=== PATIENT | male | born 1985 | race Caucasian/White ===

== ENCOUNTER 2017-03-26 00:39 | Inpatient (IN) ==
[2017-03-26] MEDS ORDERED: Piperacillin/Tazobactam 4.5 GM in D5% in Water (Mini-Bag+) 100 ML IVPB ONE (01:41)
--- NOTE | 2017-03-26 01:48 | Emergency Department Note ---
Disposition Clinical Impression: Right arm cellulitis, Abscess of right hand Disposition: Admitted As Inpatient Condition: Good Referrals: NONE,PCP [Primary Care Provider] - Forms: ED Satisfaction Letter Time of Disposition: 01:46 Extremity Problem HPI - General Chief complaint: ED Extremity Problem,Nontraumatic Stated complaint: R Hand Swelling Time Seen by Provider: 03/26/17 01:39 Source: patient Limitations: no limitations Nursing Notes Reviewed: Yes Vital Signs Reviewed: Yes - History of Present Illness Pt Subjective Complaint: extremity pain Onset (ago): day(s) Consistency: Worsening Injury Location: upper extremity Pain Scale: 10 Improves with: nothing Worsens with: range of motion, palpation Associated symptoms: Reports: swelling 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, 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, 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 but 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) - Related Data Home Medications Medication Instructions Recorded Confirmed Hydrocodone/Acetaminophen [[place] 1 tab PO Q4H PRN 01/08/15 01/08/15 10-325 Tablet] Ondansetron ODT [Zofran ODT] 4 mg SL Q6HR 01/08/15 01/08/15 Tamsulosin [Flomax] 0.4 mg PO DAILY 01/08/15 01/08/15 Previous Rx's Medication Instructions Recorded Naproxen [Naprosyn] 500 mg PO BID PRN #10 tablet 01/09/15 Clindamycin [Cleocin] 450 mg PO Q6HR 10 Days capsule 03/26/17 Allergies Allergy/AdvReac Type Severity Reaction Status Date / Time NSAIDS (Non-Steroidal Allergy can't take Verified 03/26/17 00:55 Anti-Inflamma due to ulcers All systems ED: reviewed and negative except as stated. Constitutional: Denies: fever, chills Eyes: Denies: vision change ENT ED: Denies: throat pain Cardiovascular: Denies: palpitations Respiratory: Denies: other Gastrointestinal: Denies: abdominal pain, nausea, vomiting Genitourinary: Denies: dysuria Musculoskeletal: Reports: as per HPI. Denies: back pain Integumentary: Denies: rash Neurological: Denies: headache Psychiatric: Denies: anxiety Endocrine: Denies: fatigue Hematological/Lymphatic: Denies: easy bleeding Allergic/Immunologic: Denies: facial swelling Past Medical History - Past Medical History Medical history: Reports: kidney stones Surgical history: Reports: non-contributory Psychiatric history: Reports: no psych history - Social History Smoking Status: Current every day smoker Alcohol use: Reports: none Drug use: Reports: none Physical Exam - General Limitations: no limitations General appearance: alert - Head Head exam: normocephalic - Eye Eye exam: Present: EOMI - ENT ENT exam: mucous membranes moist - Neck Neck exam: Present: full ROM - Chest Chest inspection: Present: symmetric chest wall rise - Respiratory Respiratory exam: Present: normal lung sounds bilaterally. Absent: respiratory distress - Cardiovascular Cardiovascular exam: Present: regular rate, normal rhythm, normal heart sounds - Abdominal Exam Abdominal exam: Present: soft, Non-Tender - Expanded Upper Extremity Exam Elbow exam: Present: normal inspection, full ROM Forearm/Wrist exam: Present: tenderness (right), swelling (right). Absent: full ROM Hand exam: Present: tenderness (right), swelling (right). Absent: full ROM Neurosensory exam: Normal: 2-point discrimination Vascular exam: Normal: capillary refill, radial pulse - Back Exam Back exam: Present: full ROM - Neurological Exam Neurological exam: Present: alert - Psychiatric Psychiatric exam: Present: normal affect, normal mood - Skin Skin exam: Present: warm, dry, intact, normal color. Absent: rash, cyanosis, diaphoresis Course Course Narrative: Patient is a right-hand dominant 31-year-old male that presents with swelling and pain in his right upper extremity. Just prior to his arrival, patient had signed out AGAINST MEDICAL ADVICE, but had been seen and evaluated and accepted for admission despite his arrival. He returns with request to continue his treatment. He denies any changes in his medical condition. Please see earlier documentation from previous visit for details. Patient had received vancomycin earlier. Zosyn was ordered. 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 We will continue fluids, start Zosyn patient is also due for a lactic acid. I had spoken to the hospitalist Dr. Ordonez earlier who had accepted the patient. We will plan for admission. - Reevaluation(s) Reevaluation #1: Pt's lactic acid improving, vitals stable. Pt stable for transfer to inpatient care. Time: 02:17 Vital Signs Temperature 97.4 F L 03/26/17 00:51 Pulse Rate 86 03/26/17 00:51 Respiratory Rate 16 03/26/17 00:51 Blood Pressure 102/61 03/26/17 00:51 O2 Sat by Pulse Oximetry 97 03/26/17 00:51 Temperature 97.4 F L 03/26/17 00:51 Pulse Rate 86 03/26/17 00:51 Respiratory Rate 16 03/26/17 00:51 Blood Pressure 102/61 03/26/17 00:51 O2 Sat by Pulse Oximetry 97 03/26/17 00:51 Oxygen Delivery Oxygen Delivery Room Air Extremity Problem, Nontraumati - Lab Data Lab Results 03/26/17 Range/Units 01:50 Lactic Acid 1.9 (0.5-2.2) mmol/L
[2017-03-26] MEDS: 0.9 % Sodium Chloride 1,000 ML IVC SCH ×6 (01:55→20:15)
[2017-03-26] MEDS ORDERED: Acetaminophen 325 MG TABLET PO ONE (02:18)
[2017-03-26] MEDS: *HR* Morphine 2 MG/ML SYRINGE IVP PRN ×2 (04:11→06:42)
[2017-03-26] MEDS: Nicotine 21 MG PATCH.TD24 TD SCH ×2 (05:50→22:11)
[2017-03-26] MEDS ORDERED: Naloxone 0.4 MG/ML INJ IVP PRN (08:17)
[2017-03-26] MEDS ORDERED: Acetaminophen 325 MG TABLET PO PRN (08:17)
--- NOTE | 2017-03-26 08:44 | Orthopedic Consult Note ---
Date of Encounter: 03/26/17 Time of Encounter: 08:42 Assessment and Plan (1) Abscess of right hand Current Visit: Yes Status: Acute Right dorsal hand/wrist abscess. I did discuss the diagnosis in detail the patient. Treatment options were discussed and my recommendation was for incision, drainage, irrigation, and debridement in order to assist in infection clearance coupled with IV antibiotics. Given the large nature of the abscesses and multiple loculations, my recommendation was to proceed to the operating room for this procedure. The risks discussed included but were not limited to stiffness, bleeding, infection, blood clots, damage to neurovascular structures , tendons, ligaments, and bone. Also discussed was the risk of continued symptoms and possible need for further procedures. I did discuss the anesthesia risks including stroke, heart attack, and . I did discuss the reasonable, foreseeable postoperative course with the patient. I discussed this in simple terms with the patient and he wished to proceed and consent was obtained. History of Present Illness HPI: Mr. Vallejo is a 31 year old male who is admitted to the hospitalist yesterday due to a right dorsal hand and wrist infection with underlying abscess. I was consulted to assist in the evaluation and management of this patient. On my evaluation the patient says that about 3 days ago he simply woke up with pain and swelling on the back of his hand and wrist. He tried to drain it himself with a sewing needle. He was unsuccessful. Due to persistent pain and swelling he presented to the emergency department where he had apparently attempted signing out AMA once but then eventually agreed to admission. Pain is isolated to the right dorsal hand and wrist and radiates proximally and is quite significant. Numbness and tingling to the distal hand and fingers. Pain is worse with movement and without any relieving factors. No other associated signs or symptoms or modifying factors. When asked about IV drug use he adamantly denies this and says that he did not inject anything into the right dorsal wrist or hand area. Past Med Surg Social Fam HX - Past Medical History Medical history: DVT, kidney stones Psychiatric history: no psych history - Past Surgical History Surgical History: non-contributory - Social History Smoking Status: Current every day smoker Packs per day: 1 Smokeless Tobacco Status: No Alcohol use: none Drug use: none Medications and Allergies No Known Home Drugs 03/26/17 [History] 3 Allergy/AdvReac Type Severity Reaction Status Date / Time NSAIDS (Non-Steroidal Allergy can't take Verified 03/26/17 00:55 Anti-Inflamma due to ulcers All Systems Reviewed: Constitutional and musculoskeletal systems were reviewed and are negative unless otherwise stated in history of present illness. Physical Exam - Constitutional Vitals: Temp Pulse Resp BP Pulse Ox 97.8 F 81 16 98/51 96 03/26/17 07:03 03/26/17 07:03 03/26/17 07:03 03/26/17 07:03 03/26/17 07:03 CONSTITUTIONAL -Vitals reviewed -The patient is well developed, well nourished, well groomed PSYCHIATRIC -Fully alert and oriented -Pleasant mood RIGHT UPPER EXTREMITY Inspection shows that the skin and the soft tissue envelope are intact. Significant swelling to the dorsal hand and wrist area with overlying cellulitis. The cellulitis remains localized. There is dorsal distal forearm swelling without erythema. No induration. No significant fluctuance. Significant tenderness to palpation dorsally. The fingers are puffy. Full motion of the shoulder and elbow without difficulty. Wrist and digital motion is limited due to the pain. Grossly flex and extend the digits. The fingertips are all grossly sensate and well-perfused. Diagnostic Imaging: I did personally review and interpret the CT scan of the right hand and wrist which show multiple large dorsal subcutaneous and deep abscesses going down to the extensor tendons. Results - Labs Labs: All other labs normal. Consult Discharge Plan - Plan Referrals: NONE,PCP [Primary Care Provider] -
--- NOTE | 2017-03-26 09:02 | Internal Med History&Physical ---
Date of Encounter: 03/26/17 Time of Encounter: 09:02 Assessment and Plan (1) Right arm cellulitis Current visit: Yes Status: Acute Treat with IV antibiotics. Pain control with intravenous narcotic medications. High risk for complications. (2) Abscess of right hand Current visit: Yes Status: Acute Orthopedics has been consulted for evaluation. Possible incision and drainage later today. Keep nothing by mouth for now. Internal Medicine - H&P: HPI Chief complaint: Pain with swelling and redness over the right hand Admitted From: Emergency Dept Plans for Post Hospital Care: Home History of present illness: Mr. Vallejo is a 31 year old male patient who presented to the ER with complaints of swelling and redness involving the right hand along with severe pain. He says the symptoms started Wednesday morning when he woke up in the morning with pain and swelling involving this hand. He denies any traumatic injury or insect bite that he was aware of. He tried applying ice packs and then the swelling did not go down he tried to open it up with a sewing needle. However the symptoms continued to quit or sensory came to the ER yesterday. He was evaluated and recommended hospitalization for intravenous antibiotics and drainage but he decided to go home AGAINST MEDICAL ADVICE. He was sent home on oral antibiotics. Return to the ER as his pain continued to get worse. He then agreed to be hospitalized. He denies any fever at this time. Pain is 10 out of 10 in severity in the right hand and extending up to the forearm. Past Med Surg Social Fam HX - Past Medical History Attestation: Yes The following information was validated with the patient. Source: patient Medical history: DVT, GI bleed, kidney stones Psychiatric history: no psych history - Past Surgical History Surgical History: non-contributory - Social History Smoking Status: Current every day smoker Packs per day: 1 Smokeless Tobacco Status: No Alcohol use: none Drug use: none - Additional Family History Additional family history: Reviewed and found to be noncontributory at this time Internal Medicine - H&P: Meds No Known Home Drugs 03/26/17 [History] 3 Allergy/AdvReac Type Severity Reaction Status Date / Time NSAIDS (Non-Steroidal Allergy can't take Verified 03/26/17 00:55 Anti-Inflamma due to ulcers All Systems PM: A 10-system review of systems was performed and is negative for pertinent findings except as documented above in the HPI. - Constitutional Constitutional: malaise, no chills, no fever(s), no night sweats - EENT Eyes: no change in vision, no discharge, no pain, no photophobia Ears: no ear discharge, no ear pain, no tinnitus Nose, mouth and throat: no dysphagia, no nasal discharge, no neck pain, no sore throat - Cardiovascular Cardiovascular ROS IM: no chest pain, no diaphoresis, no dyspnea, no lightheadedness, no palpitations, no syncope - Musculoskeletal Musculoskeletal ROS IM: no numbness, no tingling - Integumentary Integumentary IM: erythema, rash - Neurological Neurological ROS: no confusion, no convulsions, no focal weakness, no numbness, no tingling, no tremor(s) - Hematologic/Lymphatic Hematologic/Lymphatic: no easy bruising - Constitutional Vitals: Temp Pulse Resp BP Pulse Ox 97.8 F 81 16 98/51 96 03/26/17 07:03 03/26/17 07:03 03/26/17 07:03 03/26/17 07:03 03/26/17 07:03 General appearance: Present: cooperative, A&O X 3, answers questions appropriately Exam: Moderate distress - Neck Neck exam general surgery: Present: supple, trachea midline. Absent: lymphadenopathy - Respiratory Respiratory exam: Present: CTAB. Absent: accessory muscle use, rales, rhonchi, wheezes - Cardiovascular Cardiovascular exam: Present: RRR, +S1, +S2. Absent: diastolic murmur, gallop, rubs, systolic murmur - GI/Abdominal GI/Abdominal exam: Present: normal bowel sounds, soft, no peritoneal signs. Absent: distended, tenderness - Extremities Exam Extremities exam: Present: tenderness, warm, radial pulses palpable and symmetrical. Absent: calf tenderness, cyanotic, pedal edema Additional comments: Erythema and swelling involving the entire dorsal surface of the right hand with extension up to the forearm. Pain with both active and passive motion around the wrist and finger joints - Neurological Exam Neurological exam: Present: CN II-XII intact, oriented X3, no focal deficits. Absent: facial droop, speech deficit - Skin Skin exam: Present: dry, erythema, intact Internal Med - H&P Results - Labs Labs: WBC 19.2 - Impressions CT of the right forearm and hand done yesterday show large abscesses on the dorsal surface of the hand measuring 3.3 x 2 x 4.4 cm with associated tenosynovitis of the third and fourth extensor digitorum tendon and small linear abscess measuring 13 x 5 x 23 mm along the dorsal aspect of the wrist near extensor digitorum tendons and musculature
[2017-03-26] MEDS: *HR* HYDROmorphone 2 MG/ML SYRINGE IVP PRN ×6 (09:09→23:19)
[2017-03-26] MEDS: Vancomycin 1,000 MG in D5% in Water 250 ML IVPB SCH ×2 (09:49→20:08)
[2017-03-26] MEDS: *HR* OxyCODONE Immed Rel 5 MG TABLET PO PRN ×2 (10:40→22:11)
[2017-03-26] MEDS: Piperacillin/Tazobactam 3.375 GM in D5% in Water 50 ML IVPB SCH ×2 (13:13→23:18)
[2017-03-26] MEDS ORDERED: *HR* HYDROmorphone 2 MG/ML SYRINGE IVP ONE (13:44)
--- NOTE | 2017-03-26 16:22 | Anesthesia Evaluation PreOp ---
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 Significant HX Other Medical History: Renal (Hx of kidney stones), Bleeding (Hx of DVT), GERD ( Hx GIB/ulcers) Anesthesia History: No Prior Anesthetic Complications, Past Anesthesia Alcohol Use: none Drug use: none Medications and Allergies No Known Home Drugs 03/26/17 [History] 3 Allergy/AdvReac Type Severity Reaction Status Date / Time NSAIDS (Non-Steroidal Allergy can't take Verified 03/26/17 00:55 Anti-Inflamma due to ulcers - Meds/Allergy Pre-op Review Medications Reviewed: Yes Allergies Reviewed: Yes Beta Blockers on Current Med List: No Anesthesia Results - Labs Laboratory Results Lactic Acid 1.9 mmol/L (0.5-2.2) 03/26/17 01:50 Anesthesia Exam Vital Signs Temp Pulse Resp BP Pulse Ox 03/26/17 11:53 98.2 F 74 16 97/53 99 03/26/17 10:02 96 03/26/17 07:03 97.8 F 81 16 98/51 96 03/26/17 03:02 97.8 F 69 18 101/69 100 03/26/17 02:51 18 135/72 03/26/17 00:51 97.4 F L 86 16 102/61 97 Intake and Output 03/26/17 03/26/17 03/26/17 07:59 15:59 23:59 Intake Total 1999 100 / 100 Output Total 0 / 0 Balance 1999 100 / 100 Intake: IV Fluids 1999 100 / 100 0.9 % Sodium Chloride 1,000 ML 1999 @ 3750 mls/hr IVC .Q16M [facility] Rx# :[id number] Zosyn 4.5 GM In Dextrose 5% ( 100 / 100 Minibag+) 100 ML 100 ML @ 100 mls/hr IVPB ONCE ONE Rx#: [id number] Output: Urine 0 / 0 Other: # Voids 1 Weight 61.235 kg Patient Weight 03/26/17 23:59 Weight 61.235 kg Height: 5'9" Weight: 135# BMI = 20 NPO (# of Hours): MNoc - HEENT Pupil (Motor): Pupils equal, EOMI Mallampati: II Teeth: Normal Oral Opening: Greater than 3 - COMMODITIES TRADER LOC: Oriented COMMODITIES TRADER Motor: Normal RUE, Normal LUE, Normal RLE, Normal LLE, Normal Face COMMODITIES TRADER Sensory: Normal: RUE, LUE, RLE, LLE, Face - Cardiac Rhythm: Regular Murmur: None - Pulmonary Breath Sounds: bilateral Clear Respiratory Effort: Symmetrical Anesthesia Assess/Plan ASA Score: 2 (Smoker, suspected IVDA) Modified Scotty Scale for Level of Consciousness: Cooperative, oriented, and tranquil Anesthetic Plan: General Monitoring Plan: Standard Monitors Recovery Plan: PACU Anes Supervising Prov Stmt: Pt seen/evaluated, R&B Discussed, questions answered and consent obtained. Adarsh Kinney MD
[2017-03-26] MEDS ORDERED: Gabapentin 300 MG CAPSULE ONE (16:49)
[2017-03-26] MEDS ORDERED: Ondansetron 4 MG/2 ML VIAL ONE (16:56)
[2017-03-26] MEDS ORDERED: Lidocaine -MPF 2% 2 ML VIAL ONE (16:56)
[2017-03-26] MEDS ORDERED: Dexamethasone 4 MG/ML VIAL ONE (16:56)
[2017-03-26] MEDS ORDERED: *HR* Midazolam HCl 2 MG/2 ML VIAL ONE (16:56)
[2017-03-26] MEDS ORDERED: *HR* Propofol 200 MG/20 ML VIAL IVP ONE (16:56)
[2017-03-26] MEDS ORDERED: *HR* FentaNYL (PF) 100 MCG/2 ML VIAL ONE (16:56)
[2017-03-26] MEDS ORDERED: Ondansetron 4 MG/2 ML VIAL IVP ONE (17:37)
[2017-03-26] MEDS ORDERED: *HR* Promethazine 25 MG/ML VIAL IVP PRN (17:37)
[2017-03-26] MEDS ORDERED: Ringers Solution, Lactated 1,000 ML IVC SCH (17:45)
[2017-03-26] MEDS: *HR* HYDROmorphone (PF) 1 MG/ML SYRINGE IVP PRN ×2 (17:55→18:05)
--- NOTE | 2017-03-26 18:47 | Anesthesia Evaluation Post Op ---
Date of Encounter: 03/26/17 Time of Encounter: 18:46 - Vital Signs Vital Signs: Vital Signs/O2 Sat/Glucose, Most Current Temp Pulse Resp BP Pulse Ox 03/26/17 18:30 76 16 113/80 98 03/26/17 18:20 97.7 F 81 16 118/77 95 03/26/17 18:10 82 18 123/87 95 03/26/17 18:00 86 18 134/88 97 03/26/17 17:50 98.0 F 77 18 133/97 99 - Lungs Lungs: Clear Ascult./Percussion - Airway Airway: Non-obstructed - Cardiovascular Regular Rate - Mental Status Mental Status: Alert & Oriented, Answers Appropriately - Pain Pain Scale: 0 Pain Scale used: Numeric (1 - 10) - Nausea Vomiting Nausea Vomiting: Not Present - Hydration Hydration: Ice chips - Discharge PostOp Status: Transfer Patient to floor Anes Supervising Prov Stmt: Pt seen/evaluated, VSS and pt has met criteria for discharge to floor. - MD Nirmal
--- NOTE | 2017-03-26 19:39 | Orthopedic Operative Note ---
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 Also swabs were taken for culture. IMPLANTS: None LOCAL INJECTION: None PREOPERATIVE NOTE AND INDICATIONS: Syd is a 31-year-old male who has a right dorsal hand and wrist abscess. Recommendation was for incision, drainage, irrigation, and debridement in order to assist in clearing the infection. The surgical plan was discussed with the patient. The risks, benefits, alternatives, and potential complications of this procedure were discussed with the patient including injury to veins, arteries, nerves, tendons, ligaments, and bone. Also discussed were the risks of infection, bleeding, pain, blood clots, the possible need for a blood transfusion, the possible need for further procedures, heart attack, stroke, and . Additional risks include the need for further debridements. All of this was explained in simple terms, and the patient verbalized understanding and wished to proceed. Consent was given to proceed with surgery. PROCEDURE: The patient was seen in the preoperative holding area where the identify and the consent were confirmed. The right wrist was marked. Final questions were answered. The patient was brought back to the operating room and placed supine on the operating room table. A huddle was performed with the patient and all vital surgical team members confirming patient identity, the correct procedure, and the correct operative site. General anesthesia was administered. The right upper extremity was prepped and draped in the usual sterile fashion. A surgical time out was performed immediately preceding the incision with all personnel in the operating room to confirm patient identity, the correct operative site and extremity, correct radiographic studies, availability of appropriate surgical equipment, and agreement on the planned procedure. The limb was elevated and the tourniquet was inflated. A dorsal longitudinal incision was made at the base of the hand and extended into the distal dorsal wrist area. Dissection proceeded through the subcutaneous tissue and immediately encountered were copious amounts of grossly purulent material. There is no foul smell. This was swabbed for culture. There is a significant amount of necrotic fat in the subcutaneous space which was sharply debrided. Dissection proceeded down to the dorsal retinaculum and there is noted to be grossly purulent material which could be expressed from the forearm. Therefore dissection proceeded proximally along the distal forearm region, dissecting through the subcutaneous tissue which was significantly edematous. The dorsal fascia was opened and purulence was drained and the wound was copiously irrigated with 3 L of saline. The extensor tendons of the third and fourth dorsal compartments were intact. The EPL muscle belly and extensor digitorum communis muscle bellies were intact and in good repair. After copiously irrigating and debriding the wound the remaining tissue was healthy. In total the length of the debridements spanned 16 cm. The tourniquet was deflated and discrete bleeders were electrocauterized. A final irrigation ensued. The central 5 cm was loosely closed with interrupted nylon stitches. The proximal distal portion was packed open with quarter-inch out a form gauze packing and a sterile dressing was applied. A volar short arm splint was applied. The instrument, sponge, and needle counts were correct after wound closure. POST OPERATIVE PLAN: Weight Bearing: Nonweightbearing to the right upper extremity. DVT Prophylaxis: Ambulation Activity: Avoid aggressive activities with the right upper extremity. Wound Care: Daily dressing and packing changes
[2017-03-26 20:23] LABS: Basophils # 0.1 K/mcL (0.0-0.2); Basophils % 0.5 %; Eosinophils # 0.1 K/mcL (0.0-0.6); Eosinophils % 0.7 %; Immature Granulocytes % 0.5 % (0-4); Lymphocytes # 1.6 K/mcL (0.6-4.6); Lymphocytes % 10.7 %; Mean Corpuscular HGB Conc 32.3 g/dL (31.6-35.5); Mean Corpuscular Hemoglobin 28.4 pg (28.0-33.3); Mean Corpuscular Volume 88.1 fL (83.0-100.0); Monocytes # 0.3 K/mcL (0.0-1.3); Monocytes % 2.1 %; Neutrophils # 13.1 K/mcL (1.6-8.9); Platelet Count 299 K/mcL (140-400); Red Blood Count 4.54 M/mcL (4.19-5.50); Red Cell Distribution Width 15.6 % (11.5-14.5); Segmented Neutrophils % 85.5 %
[2017-03-26 20:24] LABS: Hemoglobin 12.9 g/dL (12.9-16.9)
[2017-03-26 20:35] LABS: BUN/Creatinine Ratio 10 (6-26); Blood Urea Nitrogen 8 mg/dL (8-26); C-Reactive Protein 44 mg/L (Less than 5); Calcium 9.2 mg/dL (8.6-10.8); Carbon Dioxide 21 mEq/L (19-29); Chloride 103 mEq/L (98-109); Glucose 144 mg/dL (70-99); Osmolality,Calculated 279 (280-300); Potassium 4.2 mEq/L (3.5-4.5); Sodium 134 mEq/L (136-145); eGFR For African Americans > 60 (> 60); eGFR For Non-African Americans > 60 (> 60)
[2017-03-27] MEDS: *HR* HYDROmorphone 2 MG/ML SYRINGE IVP PRN ×10 (01:22→23:56)
[2017-03-27 03:58] LABS: Basophils % 0.2 %; Eosinophils % 0.1 %; Hemoglobin 11.7 g/dL (12.9-16.9); Immature Granulocytes % 0.3 % (0-4); Lymphocytes # 1.6 K/mcL (0.6-4.6); Lymphocytes % 13.5 %; Mean Corpuscular HGB Conc 32.5 g/dL (31.6-35.5); Mean Corpuscular Hemoglobin 28.6 pg (28.0-33.3); Mean Platelet Volume 9.8 fL (9.4-12.4); Monocytes # 0.7 K/mcL (0.0-1.3); Monocytes % 5.6 %; Neutrophils # 9.2 K/mcL (1.6-8.9); Platelet Count 270 K/mcL (140-400); Red Blood Count 4.09 M/mcL (4.19-5.50); Red Cell Distribution Width 15.4 % (11.5-14.5); Segmented Neutrophils % 80.3 %
[2017-03-27 04:12] LABS: BUN/Creatinine Ratio 11 (6-26); Blood Urea Nitrogen 10 mg/dL (8-26); Calcium 8.5 mg/dL (8.6-10.8); Carbon Dioxide 26 mEq/L (19-29); Chloride 103 mEq/L (98-109); Glucose 171 mg/dL (70-99); Osmolality,Calculated 285 (280-300); Sodium 136 mEq/L (136-145); eGFR For African Americans > 60 (> 60); eGFR For Non-African Americans > 60 (> 60)
[2017-03-27] MEDS ORDERED: Piperacillin/Tazobactam 3.375 GM in D5% in Water 50 ML IVPB SCH (08:00)
--- NOTE | 2017-03-27 08:40 | Orthopedics Progress Note ---
Date of Encounter: 03/27/17 Time of Encounter: 08:37 - Assessment and Plan (1) Abscess of right hand Current Visit: Yes Status: Acute Right dorsal hand/wrist abscess. I did discuss the diagnosis in detail the patient. Treatment options were discussed and my recommendation was for incision, drainage, irrigation, and debridement in order to assist in infection clearance coupled with IV antibiotics. Given the large nature of the abscesses and multiple loculations, my recommendation was to proceed to the operating room for this procedure. The risks discussed included but were not limited to stiffness, bleeding, infection, blood clots, damage to neurovascular structures , tendons, ligaments, and bone. Also discussed was the risk of continued symptoms and possible need for further procedures. I did discuss the anesthesia risks including stroke, heart attack, and . I did discuss the reasonable, foreseeable postoperative course with the patient. I discussed this in simple terms with the patient and he wished to proceed and consent was obtained. Subjective Interval history: S: Improved pain to the right dorsal wrist after surgery though he still complains of pain. O: Afebrile and his vital signs are stable The dressing is changed and the packing removed. No purulence. No significant erythema. Persistent swelling to the dorsum of the hand No significant induration proximal to the I&D site or on the volar aspect. He grossly flexes and extends the digits. The fingertips are all grossly sensate and well-perfused, and the radial artery pulse is 2+. Cultures are pending A: Post I&D of the right dorsal wrist and hand area P: Continue IV antibiotics at least for another 24 hours Aggressive elevation Motion exercises to reduce the risk of stiffness I will consult occupational therapy to assist in this Daily dressing changes Objective Vital signs: Vital Signs Temp Pulse Resp BP Pulse Ox 03/27/17 07:51 98.0 F 76 12 111/68 99 03/26/17 23:24 99.3 F 85 17 133/62 95 03/26/17 22:15 98.4 F 83 16 98/58 93 03/26/17 21:15 97.6 F 86 14 101/68 94 03/26/17 20:15 97.9 F 83 16 98/62 94 03/26/17 19:45 98.6 F 83 14 96/56 96 03/26/17 19:10 98.1 F 81 14 109/67 97 03/26/17 18:45 97.8 F 79 14 106/69 97 03/26/17 18:30 76 16 113/80 98 03/26/17 18:20 97.7 F 81 16 118/77 95 03/26/17 18:10 82 18 123/87 95 03/26/17 18:00 86 18 134/88 97 03/26/17 17:50 98.0 F 77 18 133/97 99 03/26/17 11:53 98.2 F 74 16 97/53 99 Intake and Output 03/26/17 03/27/17 03/27/17 23:59 07:59 15:59 Intake Total 1050 / 1050 Output Total 5 / 5 Balance 1045 / 1045 Intake: IV Fluids 1050 / 1050 0.9 % Sodium Chloride 1,000 ML 1000 / 1000 @ 3750 mls/hr IVC .Q16M [facility] Rx# :[id number] Zosyn 3.375 GM In Dextrose 5% ( 50 / 50 ADD-[place]) 50 ML @ 12.5 mls/ hr IVPB Q8H [facility] Rx#:[id number] Output: Urine 0 / 0 Estimated Blood Loss 5 / 5 - Labs CBC & BMP: 03/27/17 02:43 03/27/17 02:43 Labs: Abnormal lab results WBC 11.5 K/mcL (4.3-11.1) H 03/27/17 02:43 RBC 4.09 M/mcL (4.19-5.50) L 03/27/17 02:43 Hgb 11.7 g/dL (12.9-16.9) L 03/27/17 02:43 Hct 36.0 % (37.5-50.1) L 03/27/17 02:43 RDW 15.4 % (11.5-14.5) H 03/27/17 02:43 Neutrophils # 9.2 K/mcL (1.6-8.9) H 03/27/17 02:43 ESR 29 mm/hr (0-10) H 03/26/17 20:15 Glucose 171 mg/dL (70-99) H 03/27/17 02:43 Calcium 8.5 mg/dL (8.6-10.8) L 03/27/17 02:43 C-Reactive Protein 44 mg/L (Less than 5) H 03/26/17 20:15 - VTE Documentation of Mechanical Device: Intermittent pneumatic compression device Consult Discharge Plan - Plan Referrals: NONE,PCP [Primary Care Provider] -
[2017-03-27] MEDS: Nicotine 21 MG PATCH.TD24 TD SCH (09:09)
[2017-03-27] MEDS: Vancomycin 1,000 MG in D5% in Water 250 ML IVPB SCH (09:10)
--- NOTE | 2017-03-27 09:36 | Internal Med Progress Note ---
Date of Encounter: 03/27/17 Time of Encounter: 08:35 - Assessment and plan (1) Abscess of right hand Current Visit: Yes Status: Acute Assessment and plan: Status post I and D, irrigation and debridement of the right dorsal hand wrist and distal forearm. Will follow culture results. Continue current antibiotics. On intravenous narcotic pain medications. We will increase oral pain medication regimen. Orthopedics following. High risk for complications due to intravenous narcotic medication use. (2) Right arm cellulitis Current Visit: Yes Status: Acute Assessment and plan: Continue current IV antibiotics. - Subjective Interval history: Patient is awake and alert. Complains of severe 10 out of 10 pain in his right upper extremity. Underwent surgery yesterday with incision, drainage, irrigation and debridement of the right dorsal hand wrist and distal forearm. Tolerated procedure well. No fever or chills reported overnight. - Constitutional Vitals: Temp Pulse Resp BP Pulse Ox 98.0 F 76 12 111/68 99 03/27/17 07:51 03/27/17 07:51 03/27/17 07:51 03/27/17 07:51 03/27/17 07:51 General appearance: Present: cooperative, A&O X 3, answers questions appropriately - Neck Neck exam general surgery: Present: supple, trachea midline. Absent: lymphadenopathy - Respiratory Respiratory exam: Present: CTAB. Absent: accessory muscle use, rales, rhonchi, wheezes - Cardiovascular Cardiovascular exam: Present: RRR, +S1, +S2. Absent: diastolic murmur, gallop, rubs, systolic murmur - Extremities Exam Extremities exam: Present: warm, radial pulses palpable and symmetrical. Absent : calf tenderness, cyanotic, pedal edema Additional comments: Right upper extremity bandaged. Tender to palpation. - Neurological Exam Neurological exam: Present: CN II-XII intact, oriented X3, no focal deficits, strengths equal and symetr throughout. Absent: facial droop, speech deficit - Skin Skin exam: Present: dry, intact Internal Medicine: Result - Labs CBC & Chem 7: 03/27/17 02:43 03/27/17 02:43 Labs: Short CBC 03/26/17 03/27/17 Range/Units 20:15 02:43 WBC 15.3 H 11.5 H (4.3-11.1) K/mcL Hgb 12.9 D 11.7 L (12.9-16.9) g/dL Hct 40.0 36.0 L (37.5-50.1) % Plt Count 299 270 (140-400) K/mcL Neutrophils # 13.1 H 9.2 H (1.6-8.9) K/mcL BMP 03/26/17 03/27/17 20:15 02:43 Sodium 134 L 136 Potassium 4.2 4.0 Chloride 103 103 Carbon Dioxide 21 26 BUN 8 10 Creatinine 0.80 0.93 Glucose 144 H 171 H Calcium 9.2 8.5 L - VTE Documentation of Mechanical Device: Intermittent pneumatic compression device Consult Discharge Plan - Plan Referrals: NONE,PCP [Primary Care Provider] -
[2017-03-27] MEDS: *HR* OxyCODONE Immed Rel 15 MG TABLET PO PRN ×2 (10:26→20:31)
[2017-03-27] MEDS: 0.9 % Sodium Chloride 1,000 ML IVC SCH ×2 (10:30→19:33)
[2017-03-27] MEDS ORDERED: Vancomycin 1,000 MG in D5% in Water 250 ML IVPB SCH ×2 (11:00→21:00)
[2017-03-27] MEDS: Piperacillin/Tazobactam 3.375 GM in D5% in Water 50 ML IVPB SCH ×2 (12:14→17:31)
[2017-03-28] MEDS: *HR* HYDROmorphone 2 MG/ML SYRINGE IVP PRN ×5 (01:08→10:31)
[2017-03-28] MEDS: *HR* OxyCODONE Immed Rel 15 MG TABLET PO PRN ×2 (02:36→13:06)
[2017-03-28] MEDS: 0.9 % Sodium Chloride 1,000 ML IVC SCH (06:03)
[2017-03-28] MEDS ORDERED: Vancomycin 1,000 MG in D5% in Water 250 ML IVPB SCH (07:00)
[2017-03-28] MEDS: Piperacillin/Tazobactam 3.375 GM in D5% in Water 50 ML IVPB SCH ×2 (08:27)
[2017-03-28] MEDS: Nicotine 21 MG PATCH.TD24 TD SCH (08:27)
--- NOTE | 2017-03-28 10:59 | Orthopedics Progress Note ---
Date of Encounter: 03/28/17 Time of Encounter: 10:57 - Assessment and Plan (1) Abscess of right hand Current Visit: Yes Status: Acute Right dorsal hand/wrist abscess. I did discuss the diagnosis in detail the patient. Treatment options were discussed and my recommendation was for incision, drainage, irrigation, and debridement in order to assist in infection clearance coupled with IV antibiotics. Given the large nature of the abscesses and multiple loculations, my recommendation was to proceed to the operating room for this procedure. The risks discussed included but were not limited to stiffness, bleeding, infection, blood clots, damage to neurovascular structures , tendons, ligaments, and bone. Also discussed was the risk of continued symptoms and possible need for further procedures. I did discuss the anesthesia risks including stroke, heart attack, and . I did discuss the reasonable, foreseeable postoperative course with the patient. I discussed this in simple terms with the patient and he wished to proceed and consent was obtained. Subjective Interval history: S: Improved pain to the right dorsal wrist after surgery though he still complains of pain. O: Afebrile and his vital signs are stable The dressing is changed. No purulence. No significant erythema. Persistent swelling to the dorsum of the hand No significant induration proximal to the I&D site or on the volar aspect. He grossly flexes and extends the digits. The fingertips are all grossly sensate and well-perfused, and the radial artery pulse is 2+. Cultures are pending A: Post I&D of the right dorsal wrist and hand area P: Aggressive elevation Motion exercises to reduce the risk of stiffness Daily dressing changes and warm, soapy soaks Follow up in the office in 1 week upon discharge for a wound check. Objective Vital signs: Vital Signs Temp Pulse Resp BP Pulse Ox 03/28/17 07:18 97.6 F 60 20 109/64 98 03/27/17 23:34 98.2 F 88 16 131/83 92 03/27/17 19:12 98.1 F 87 16 109/69 99 03/27/17 16:04 97.2 F L 69 18 108/68 99 Intake and Output 03/28/17 03/28/17 03/28/17 00:59 07:59 15:59 Intake Total 120 / 120 Balance 120 / 120 Intake: IV Fluids 0.9 % Sodium Chloride 1,000 ML @ 100 mls/hr IVC .Q10H [facility] Rx#: [id number] Zosyn 3.375 GM In Dextrose 5% ( ADD-[place]) 50 ML @ 12.5 mls/ hr IVPB Q8HR [facility] Rx#:[id number] Vancocin 1,000 MG In Dextrose 5 % 250 ML @ 167 mls/hr IVPB Q12H [facility] Rx#:[id number] Oral 120 / 120 Other: Meal Breakfast Percent of Meal Consumed 100% - Labs CBC & BMP: 03/27/17 02:43 03/27/17 02:43 Labs: Abnormal lab results WBC 11.5 K/mcL (4.3-11.1) H 03/27/17 02:43 RBC 4.09 M/mcL (4.19-5.50) L 03/27/17 02:43 Hgb 11.7 g/dL (12.9-16.9) L 03/27/17 02:43 Hct 36.0 % (37.5-50.1) L 03/27/17 02:43 RDW 15.4 % (11.5-14.5) H 03/27/17 02:43 Neutrophils # 9.2 K/mcL (1.6-8.9) H 03/27/17 02:43 ESR 29 mm/hr (0-10) H 03/26/17 20:15 Glucose 171 mg/dL (70-99) H 03/27/17 02:43 Calcium 8.5 mg/dL (8.6-10.8) L 03/27/17 02:43 C-Reactive Protein 44 mg/L (Less than 5) H 03/26/17 20:15 Vancomycin Trough 0.5 mcg/mL (10-20) L 03/27/17 20:45 - VTE Documentation of Mechanical Device: Intermittent pneumatic compression device Consult Discharge Plan - Plan Referrals: NONE,PCP [Primary Care Provider] -
[2017-03-28 11:27] VITALS: BP 100/62
--- NOTE | 2017-03-28 12:15 | Discharge Summary ---
Date of Encounter: 03/28/17 Time of Encounter: 12:12 - Discharge Diagnosis (1) Abscess of right hand Priority: Primary Status: Acute (2) Right arm cellulitis Priority: Secondary Status: Acute - Discharge Medications Prescriptions: OxyCODONE Immed Rel [Roxicodone 15 MG] 15 mg PO Q6HR PRN #25 tablet PRN Reason: Severe Pain Sulfamethoxazole/Trimeth DS [Bactrim DS] 1 each PO BID #20 tablet Home Medications: OxyCODONE Immed Rel [Roxicodone 15 MG] 15 mg PO Q6HR PRN #25 tablet 03/28/17 [Rx ] Sulfamethoxazole/Trimeth DS [Bactrim DS] 1 each PO BID #20 tablet 03/28/17 [Rx] Allergies/Adverse Reactions: 3 Allergy/AdvReac Type Severity Reaction Status Date / Time NSAIDS (Non-Steroidal Allergy can't take Verified 03/26/17 00:55 Anti-Inflamma due to ulcers Date of admission: 03/26/17 10:57 Primary care physician: PCP NONE Consults: 03/27/17 08:40 OT [Consult to Occupational Therapy] [CONS] Routine Comment: Evaluate, develop and implement POC Reason for Consult: Motion exercises to the right hand/wrist Discharging clinician: Carmita Castanon Anticipated date of discharge: 03/28/17 - Patient Status Disposition: Home, Self-Care Condition: Good Functional capacity at discharge: independent ambulation Overall status at discharge: patient is progressing back to baseline - Discharge Instructions Instructions: Cellulitis (DC) Follow Up With: NONE,PCP [Primary Care Provider] - Abdulaziz Perez MD [Partnered Physician] - (Within one week) Additional Instructions: Aggressive elevation Motion exercises to reduce the risk of stiffness Daily dressing changes and warm, soapy soaks Return to the ER if you develop worsening pain, swelling or redness along with fevers chills or night sweats. - Diet and Activity Activity: increase activity as tolerated Diet: low fat, low cholesterol, low salt diet Hospital course: Mr. Vallejo is a 31 year old male patient with past medical history of GI bleed presented to the ER with complaints of right hand and forearm pain and swelling. He was diagnosed with cellulitis and abscess involving this region. He was started on IV antibiotics and orthopedics was consulted. Patient was evaluated by orthopedics and then underwent incision, drainage, irrigation and debridement of the right dorsal hand, wrist and distal forearm. Since then has been improving slowly. He has been in significant amount of pain requiring persistent doses of intravenous narcotic medications. He does report that his pain is better controlled today with oral medications. He has been cleared for discharge from an orthopedic standpoint. He will follow up with orthopedics in one week. He will complete treatment course with Bactrim. He will be discharged with 25 pills of oxycodone 15 mg to be taken every 6 hours as needed for severe pain. - Time Spent with Patient Total time spent providing and/or coordinating discharge services: Greater than 30 minutes (32 min) - Constitutional Vitals: Temp Pulse Resp BP Pulse Ox 97.4 F L 71 16 100/62 94 03/28/17 11:24 03/28/17 11:24 03/28/17 11:24 03/28/17 11:24 03/28/17 11:24 General appearance: Present: cooperative, A&O X 3, answers questions appropriately - Neck Neck exam general surgery: Present: supple, trachea midline. Absent: lymphadenopathy - Respiratory Respiratory exam: Present: CTAB. Absent: accessory muscle use, rales, rhonchi, wheezes - Cardiovascular Cardiovascular exam: Present: RRR, +S1, +S2. Absent: diastolic murmur, gallop, rubs, systolic murmur - Extremities Exam Extremities exam: Present: warm, radial pulses palpable and symmetrical. Absent : calf tenderness, cyanotic, pedal edema Additional comments: Right upper extremity surgical incision appears clean. No purulent drainage. Has good around his wrist joint. - VTE Documentation of Mechanical Device: Intermittent pneumatic compression device
[2017-03-28] MEDS ORDERED: Aminoglycoside Consult 1 EACH MC ONE (13:14)
== END 2017-03-28 13:15 | disposition home or self-care (01) | DRG 383 ==
LOC: 3NENU 00:39 → EMEROO 00:39 → 3NENU 02:51
PROVIDERS: ADMIT Internal Medicine; ATTEND Internal Medicine